=== PATIENT | male | born 1990 | race Two or more races ===

== ENCOUNTER 2021-10-12 12:31 | Emergency (ER) | payer MEDICAID, OTHER ==
[~2021-10-12] VITALS: Ht 177.8 cm; Wt 81.6 kg
[2021-10-12 16:34] VITALS: BP 157/101
[2021-10-12] MEDS ORDERED: KETOROLAC TROMETH 60MG/2ML VIAL IM ONE (18:00)
== END 2021-10-12 18:00 | disposition home or self-care (01) ==
LOC: ER 12:31
DX: S39.012A Strain of muscle, fascia and tendon of lower back, initial encounter (principal); F12.10 Cannabis abuse, uncomplicated; X50.0XXA Overexertion from strenuous movement or load, initial encounter; Y93.89 Activity, other specified; Y92.89 Other specified places as the place of occurrence of the external cause; Y99.8 Other external cause status
CPT/HCPCS: 72100; 96372; 99283; J1885